=== PATIENT | female | born 1945 | race Caucasian/White ===

== ENCOUNTER → 2018-02-20 | Outpatient (CLI) | payer OTHER ==
[~2018-02-20] MED LIST: AMOXICILLIN 50500 M1 PO; AMOXICILLIN 50500 MG PO; ASPIRIN EC81 M1 PO; ATENOLOL 25 MG25 M1 PG; CALTRATE 600 +1 EAC1 PO; CRANBERRY500 M1 PO; FLEXERIL PO; HYDROCODON-ACE1 EAC7 PO; LIPITOR20 MG PO; MEDROLDOSEPACK PO; NAPROSYN500 MG PO; PERCOCET 5-3251 EACH PO; PRILOSEC 20 MG20 MG PO; [UNRECOGNIZED DRUG - OTHER] PO
== END ==
LOC: M.LAB 02-19 16:37
DX: Z01.812 Encounter for preprocedural laboratory examination (principal); I10 Essential (primary) hypertension; K21.9 Gastro-esophageal reflux disease without esophagitis